=== PATIENT | male | born 1960 | race Caucasian/White ===

== ENCOUNTER → 2020-05-28 08:37 | Outpatient (POV) | payer MEDICARE, SELFPAY ==
[2020-05-28 09:10] VITALS: BP 181/92; PULSE 85; RESP 18; TEMP 36.8; O2SAT 98; BMI 39.1
--- NOTE | 2020-05-28 09:54 | [facility].PMCON ---
Assessment and Plan (1) Degenerative disc disease, lumbar Status: Chronic Category: Medical Code(s): M51.36 - Other intervertebral disc degeneration, lumbar region (2) Lumbar radicular pain Status: Chronic Category: Medical Code(s): M54.16 - Radiculopathy, lumbar region - Assessment and plan all Dx Assessment and Plan for all problems:: We will give the patient information in regards to other clinics that do medication management. Patient made it clear that he is not here for any interventional treatment of pain. I discussed with him that we do not do medication management but we would be happy to do interventional treatment in the future. Dr. Cherry has reviewed this note and agrees with this plan of care. This note was dictated using voice recognition software and may contain errors or omissions HPI - Data of Consult Consult date: 05/28/20 Requesting Physician: Tash Zamora APRN Primary Care Provider: Referral Provider, MD - Consult Narrative Reason for consult: back and leg pain History of present illness: Mr. Hinton is a 60 year old male Patient is a pleasant 60-year-old white male who presents today for consultation regards his low back and leg pain he is recently been discharged from his previous pain management clinic due to failed pill count. Patient was on oxycodone and gabapentin. Patient and I had a long discussion about his MRI and options in regards to pain management. Patient rates his pain today an 8 out of 10. Patient states that increased activity worsens his pain while sitting and leaning forward also decreases his pain. Patient does have an L5 nerve root impingement. He is a surgical candidate however he does not want to move forward with surgery. Patient states that he has had injections in the past for minimal relief. He states that he is only interested in medication management. CC: Tash Zamora APRN [facility] History I have reviewed the patient's past medical history: Yes Medical History: Reports:: Diabetes Mellitus Type 2, Hyperlipidemia, Hypertension Denies:: Cancer, Diabetes Mellitus Type 1, MRSA *Have you ever received a pneumonia vaccine?: Yes *Have you received a flu vaccine this season?: No Other Surgeries: Yes: No Previous Surgery Amputation: No Fractures: No - *Social History Smoking Status: Former smoker Alcohol Intake: never *Occupational Status:: retired Housing: house Household Members: other *Travel in the last 8 weeks: None Family Hx:: Unable to obtain Review of Systems - Review of Systems ROS General: no recent weight change, no fever, no sleep disturbances Respiratory: no cough, no shortness of air, no recurring pulmonary infections Cardiovascular/Peripheral Vascular: No chest pain, No palpitations, no edema, no shortness of breath. Gastrointestinal: no new onset incontinence, normal bowel movements reported Genitourinary: no new onset incontinence Musculoskeletal: Back pain, leg pain Psychiatric: normal mood/ affect Neurological: [denies new onset weakness in extremities], [denies new onset balance issues] Objective Vital signs: Temp Pulse Resp BP Pulse Ox 98.2 F 85 18 181/92 H 98 05/28/20 09:10 05/28/20 09:10 05/28/20 09:10 05/28/20 09:10 05/28/20 09:10 Narrative: Physical Exam General: Alert and oriented x3, no acute distress, pleasant and cooperative, [on room air] Lungs: Resps E/U, Symmetrical chest expansion, Eyes: PERRL Musculoskeletal: Flexion and extension of lumbar spine somewhat guarded secondary to pain, deep tendon reflexes normal, strength in upper and lower extremities [5/5], [abnormal gait noted] Neurological: speech clear, solution spec equal, no gross sensory deficits Opioid Risk Tool - Opioid Risk Tool-Male Family hx alcohol abuse: N Family hx illegal drugs: N Family hx rx drug abuse: N Personal hx alcohol abuse: N Personal hx illegal drugs: N Personal hx rx drug abuse: N
== END ==
PROVIDERS: Visit Provider Clinical Nurse Specialist Family Health
DX: M51.16 Intervertebral disc disorders with radiculopathy, lumbar region (principal)
CPT/HCPCS: 99202